=== PATIENT | female | born 1955 | race Caucasian/White ===

== ENCOUNTER 2019-02-15 14:56 | Emergency (ER) | payer BC ==
[2019-02-15 15:27] LABS: ABS Eosinophils 0.2 10^3/ul (0-0.6); ABS Lymphocytes 0.7 10^3/ul (1.0-4.8); ABS Monocytes 0.5 10^3/ul (0-0.8); Eosinophil % 2.1 %; Hematocrit 36 % (35-47); Hemoglobin 12.5 g/dL (12.0-16.0); Lymphocyte % 9.8 %; Mean Corpuscular HGB Conc 35 g/dL (31-36); Mean Corpuscular Hemoglobin 36 pg (27-31); Mean Corpuscular Volume 105 fL (80-97); Mean Platelet Volume 7.5 fL (7.4-10.4); Platelet Count 151 10^3/uL (150-450); Red Blood Count 3.44 10^6 /uL (3.70-4.87); Red Cell Distribution Width 16 % (10-15); White Blood Count 7.4 10^3/uL (3.5-10.8)
[2019-02-15 15:36] LABS: INR 0.92 (0.82-1.09)
[2019-02-15 16:40] LABS: Albumin 4.1 g/dL (3.2-5.2); Calcium 9.4 mg/dL (8.6-10.3); Potassium 4.2 mmol/L (3.5-5.0)
[2019-02-15 16:46] LABS: Albumin/Globulin Ratio 1.3 (1-3); BUN/Creatinine Ratio 15.2 (8-20); EGFR African American 89.5 (>60); Globulin 3.1 g/dL (2-4); Total Protein 7.2 g/dL (6.4-8.9)
--- NOTE | 2019-02-15 20:51 | ED ---
HPI Chest Pain - HPI Summary HPI Summary: This pt is a 63 Y/O F presenting to [facility] accompanied by her with a CC of chest pain, currently rated a 4/10 in severity and described as heaviness, that has been reoccurring and is aggravated with movement. She states that she becomes SOB when she exerts herself, which has been constant for the last couple weeks. She states that she has to sit down when she gets out of the shower due to her SOB. She states that the pain is described as heaviness. She states that the episodes occur for no longer than a couple minutes. She denies any lightheadedness, N/V, diaphoresis, and dizziness. She states that she has had a decreased appetite and has been having sleep disturbances. She states that movement and exertion aggravate her factors and that resting alleviates them. She has a PMHx of HTN and states a large family history of cardiac issues which include heart attacks in her father, mother, and her brother. - History of Current Complaint Chief Complaint: EDChestPainROMI Time Seen by Provider: 02/15/19 15:21 Hx Obtained From: Patient Onset/Duration: Started Weeks Ago, Still Present Timing: Intermittent, Lasting Minutes Initial Severity: Moderate - states that during her episodes the pain is a 4/10 in seveirty. Current Severity: None Pain Intensity: 0 Pain Scale Used: 0-10 Numeric Chest Pain Location: Left Anterior Chest Pain Radiates: No Character: Heaviness Aggravating Factor(s): Exertion Alleviating Factor(s): Rest Associated Signs and Symptoms: Positive: Chest Pain, Shortness of Breath. Negative: Dizziness, Lightheadedness, Diaphoresis, Nausea, Vomiting - Allergy/Home Medications Allergies/Adverse Reactions: Allergies Allergy/AdvReac Type Severity Reaction Status Date / Time MS Penicillins [PCN] Allergy Rash Verified 02/15/19 20:38 PMH/Surg Hx/FS Hx/Imm Hx Previously Healthy: Yes Endocrine/Hematology History: Denies: Hx Diabetes Cardiovascular History: Reports: Hx Hypertension Respiratory History: Denies: Hx Asthma Musculoskeletal History: Denies: Hx Rheumatoid Arthritis, Hx Osteoporosis - Cancer History Hx Chemotherapy: No Hx Radiation Therapy: No Infectious Disease History: No Infectious Disease History: Denies: Traveled Outside the [place] in Last 30 Days - Family History Known Family History: Positive: Cardiac Disease - States heart attacks in her mother, brother, and father - Social History Occupation: Retired Lives: With Family Alcohol Use: Daily Hx Substance Use: No Substance Use Type: Reports: None Hx Tobacco Use: No Smoking Status (MU): Never Smoked Tobacco Review of Systems Negative: Skin Diaphoresis Positive: Chest Pain - left anterior Positive: Shortness Of Breath Negative: Vomiting, Nausea Neurological: Negative - lightheadedness and dizzyness All Other Systems Reviewed And Are Negative: Yes Physical Exam - Summary Physical Exam Summary: Appearance: Well-appearing, Well-nourished, lying in bed comfortably Skin: Warm, dry, no obvious rash Eyes: sclera anicteric, no conjunctival pallor ENT: mucous membranes moist, pharynx appears normal Neck: Supple, nontender Respiratory: Clear to auscultation, no signs of respiratory distress Cardiovascular: Normal S1, S2. No murmurs. Normal distal pulses in tibial and radial bilaterally. Abdomen: Soft, nontender, normal active bowel sounds present Musculoskeletal: Normal, Strength/ROM Intact Neurological: A&Ox3, awake and alert, mentation is normal, speech is fluent and appropriate Psychiatric: affect is normal, does not appear anxious or depressed Triage Information Reviewed: Yes Vital Signs On Initial Exam: Initial Vitals Temp Pulse Resp BP Pulse Ox 98.4 F 93 14 146/96 100 02/15/19 15:04 02/15/19 15:04 02/15/19 15:04 02/15/19 15:04 02/15/19 15:04 Vital Signs Reviewed: Yes Procedures - Sedation Patient Received Moderate/Deep Sedation with Procedure: No Diagnostics - Vital Signs Vital Signs Temp Pulse Resp BP Pulse Ox 02/15/19 19:15 98.9 F 87 20 150/92 95 02/15/19 16:59 99.3 F 91 16 147/97 100 02/15/19 15:04 98.4 F 93 14 146/96 100 - Laboratory Lab Results: Lab Results 02/15/19 02/15/19 02/15/19 Range/Units 15:16 15:16 15:16 WBC 7.4 (3.5-10.8) 10^3/uL RBC 3.44 L (3.70-4.87) 10^6 /uL Hgb 12.5 (12.0-16.0) g/dL Hct 36 (35-47) % MCV 105 H (80-97) fL MCH 36 H (27-31) pg MCHC 35 (31-36) g/dL RDW 16 H (10-15) % Plt Count 151 (150-450) 10^3/uL MPV 7.5 (7.4-10.4) fL Neut % (Auto) 81.3 % Lymph % (Auto) 9.8 % Davis % (Auto) 6.3 % Eos % (Auto) 2.1 % Baso % (Auto) 0.5 % Absolute Neuts (auto) 6.0 (1.5-7.7) 10^3/ul Absolute Lymphs (auto) 0.7 L (1.0-4.8) 10^3/ul Absolute Monos (auto) 0.5 (0-0.8) 10^3/ul Absolute Eos (auto) 0.2 (0-0.6) 10^3/ul Absolute Basos (auto) 0.0 (0-0.2) 10^3/ul Absolute Nucleated RBC 0.0 10^3/ul Nucleated RBC % 0.0 INR (Anticoag Therapy) 0.92 (0.82-1.09) Sodium 136 (135-145) mmol/L Potassium 4.2 (3.5-5.0) mmol/L Chloride 103 (101-111) mmol/L Carbon Dioxide 23 (22-32) mmol/L Anion Gap 10 (2-11) mmol/L BUN 12 (6-24) mg/dL Creatinine 0.79 (0.51-0.95) mg/dL Est GFR ( Amer) 89.5 (>60) Est GFR (Non-Af Amer) 74.0 (>60) BUN/Creatinine Ratio 15.2 (8-20) Glucose 112 H (70-100) mg/dL Calcium 9.4 (8.6-10.3) mg/dL Total Bilirubin 1.00 (0.2-1.0) mg/dL AST 177 H (13-39) U/L ALT 68 H (7-52) U/L Alkaline Phosphatase 113 H (34-104) U/L Troponin I 0.00 (<0.04) ng/mL Total Protein 7.2 (6.4-8.9) g/dL Albumin 4.1 (3.2-5.2) g/dL Globulin 3.1 (2-4) g/dL Albumin/Globulin Ratio 1.3 (1-3) 02/15/19 Range/Units 18:02 WBC (3.5-10.8) 10^3/uL RBC (3.70-4.87) 10^6 /uL Hgb (12.0-16.0) g/dL Hct (35-47) % MCV (80-97) fL MCH (27-31) pg MCHC (31-36) g/dL RDW (10-15) % Plt Count (150-450) 10^3/uL MPV (7.4-10.4) fL Neut % (Auto) % Lymph % (Auto) % Davis % (Auto) % Eos % (Auto) % Baso % (Auto) % Absolute Neuts (auto) (1.5-7.7) 10^3/ul Absolute Lymphs (auto) (1.0-4.8) 10^3/ul Absolute Monos (auto) (0-0.8) 10^3/ul Absolute Eos (auto) (0-0.6) 10^3/ul Absolute Basos (auto) (0-0.2) 10^3/ul Absolute Nucleated RBC 10^3/ul Nucleated RBC % INR (Anticoag Therapy) (0.82-1.09) Sodium (135-145) mmol/L Potassium (3.5-5.0) mmol/L Chloride (101-111) mmol/L Carbon Dioxide (22-32) mmol/L Anion Gap (2-11) mmol/L BUN (6-24) mg/dL Creatinine (0.51-0.95) mg/dL Est GFR ( Amer) (>60) Est GFR (Non-Af Amer) (>60) BUN/Creatinine Ratio (8-20) Glucose (70-100) mg/dL Calcium (8.6-10.3) mg/dL Total Bilirubin (0.2-1.0) mg/dL AST (13-39) U/L ALT (7-52) U/L Alkaline Phosphatase (34-104) U/L Troponin I 0.00 (<0.04) ng/mL Total Protein (6.4-8.9) g/dL Albumin (3.2-5.2) g/dL Globulin (2-4) g/dL Albumin/Globulin Ratio (1-3) Result Diagrams: 02/15/19 15:16 02/15/19 15:16 Lab Statement: Any lab studies that have been ordered have been reviewed, and results considered in the medical decision making process. - EKG 1456 Cardiac Rate: NL - 96 BPM EKG Rhythm: Sinus Rhythm ST Segment: Normal Ectopy: None Summary of EKG Findings: NSR at 96 BPM, P waves, QRS complex, and T waves are within normal limits, T waves and intervals are normal, no ischemic changes. This is a normal EKG. Interpreted by Dr. Addison at 1500 02/15/19. Chest Pain Course/Dx - Course Course Of Treatment: This pt is a 63 Y/O F presenting to [facility] accompanied by her with a CC of chest pain that has been reoccurring and is aggravated with movement. She states that she becomes SOB when she exerts herself, which has been constant for the last couple weeks. She states that she has to sit down when she gets out of the shower due to her SOB. She states that the pain is described as heaviness. She states that the episodes occur for no longer than a couple minutes. She denies any lightheadedness, N/V, diaphoresis, and dizziness. She states that she has an extensive family history of heart attacks in her mother, brother, and father. Her PE found no acute abnormalities. She has abnormalities in the following labratory values: RBC, MCV, MCH, RDW, absolute lymphs, Glucose, AST, ALT, and Alkaline Phosphatase. Her EKG taken at 1456 found a NSR at 96 BPM, P waves, QRS complex, and T waves are within normal limits, T waves and intervals are normal, no ischemic changes. This is a normal EKG. At 2058 her PCP, Dr. Silverio, was consulted who agreed that she should arrange for outpatient cardiology work. she will be discharged home with a Dx of chest pain and instructions to folow up with her PCP in 1-3 days who will then refer her to a campus president. - Diagnoses Provider Diagnoses: Chest pain - Provider Notifications Discussed Care Of Patient With: Brittaney Silverio Time Discussed With Above Provider: 20:59 Instructed by Provider To: Have Pt Call For Appt. - Dr. Silverio, PCP, recomended that the pt should call her for futher treatment, including helping to set her up with a campus president. Discharge ED - Sign-Out/Discharge Documenting (check all that apply): Patient Departure - discharge - Discharge Plan Condition: Stable Disposition: HOME Patient Education Materials: Chest Pain (ED) Referrals: Brittaney Silverio MD [Primary Care Provider] - 2 Days Additional Instructions: Your symptoms are suggestive of angina, or pain coming from the heart, but your EKG and blood work are negative. If your symptoms become more pronounced over the weekend (worsening discomfort, nausea, sweating, symptoms easier to evoke) we should see you back here right away. Dr. Silverio should check in with you on Monday and she will arrange referral for a stress test with a campus president. In the meantime I would recommend starting on a baby aspirin (81 mg) daily, and increasing that to a full strength aspirin (325 mg) after a couple of days if you don't have any trouble with bleeding. - Billing Disposition and Condition Condition: STABLE Disposition: Home - Attestation Statements Document Initiated by Fish: Yes Documenting Scribe: Maico Brink Provider For Whom Fish is Documenting (Include Credential): Max Shaffer MD Scribe Attestation: I, Maico Brink, scribed for Max Shaffer MD on 02/16/19 at 1924. Scribe Documentation Reviewed: Yes Provider Attestation: The documentation as recorded by the Maico stack accurately reflects the service I personally performed and the decisions made by me, Max Shaffer MD Status of Scribe Document: Viewed
[2019-02-15 21:11] VITALS: BP 153/93
== END 2019-02-15 21:35 | disposition home or self-care (01) ==
LOC: ED 14:56
DX: R07.9 Chest pain, unspecified (principal); I10 Essential (primary) hypertension; Z88.0 Allergy status to penicillin; Z79.899 Other long term (current) drug therapy
CPT/HCPCS: 36415; 80053; 84484; 85025; 85610; 93005; 99283

== ENCOUNTER 2020-06-07 13:53 | Inpatient (IN) ==
[2020-06-07 15:01] LABS: ABS Basophils 0.1 10^3/ul (0-0.2); ABS Lymphocytes 0.8 10^3/ul (1.0-4.8); ABS Monocytes 0.8 10^3/ul (0-0.8); Eosinophil % 0.3 %; Hematocrit 39 % (35-47); Hemoglobin 13.5 g/dL (12.0-16.0); Lymphocyte % 7.8 %; Mean Corpuscular HGB Conc 35 g/dL (31-36); Mean Corpuscular Hemoglobin 34 pg (27-31); Mean Corpuscular Volume 97 fL (80-97); Mean Platelet Volume 8.1 fL (7.4-10.4); Platelet Count 106 10^3/uL (150-450); Red Blood Count 3.98 10^6 /uL (3.70-4.87); Red Cell Distribution Width 15 % (10-15); White Blood Count 10.8 10^3/uL (3.5-10.8)
[2020-06-07 15:17] LABS: ALT 68 U/L (7-52); AST 268 U/L (13-39); Albumin 2.6 g/dL (3.2-5.2); Albumin/Globulin Ratio 0.6 (1-3); Alkaline Phosphatase 258 U/L (34-104); Anion Gap 12 mmol/L (2-11); BUN/Creatinine Ratio 11.1 (8-20); Blood Urea Nitrogen 18 mg/dL (6-24); C Reactive Protein 68.54 mg/L (<8.01); CO2 Carbon Dioxide 21 mmol/L (22-32); Calcium 8.3 mg/dL (8.6-10.3); Chloride 95 mmol/L (101-111); Creatine Kinase 52 U/L (10-223); EGFR African American 38.8 (>60); EGFR Non-African American 32.1 (>60); Globulin 4.1 g/dL (2-4); Glucose 93 mg/dL (70-100); Lipase 58 U/L (11.0-82.0); Potassium 4.1 mmol/L (3.5-5.0); Sodium 128 mmol/L (135-145); Total Protein 6.7 g/dL (6.4-8.9)
[2020-06-07] MEDS ORDERED: NS 0.9% 1000 ml BAG 1,000 ML IV ONE (15:36)
[2020-06-07 15:53] LABS: Acetaminophen < 15 mcg/mL
[2020-06-07 16:02] LABS: INR 1.57 (0.82-1.09)
[2020-06-07 16:09] LABS: Alcohol, S 41 mg/dL (<10)
[2020-06-07] MEDS ORDERED: Pantoprazole VIAL 40 MG VIAL IV ONE (16:16)
[2020-06-07] MEDS ORDERED: cefTRIAXone 1 gm/50 mL NS BAG 1 GM/50 ML BAG IV ONE (16:16)
[2020-06-07 16:50] LABS: Total Bilirubin 8.1 mg/dL (0.2-1.0)
[2020-06-07 17:36] LABS: Hepatitis B Surface Antigen Nonreactive (Nonreactive)
[2020-06-07 17:41] LABS: Hepatitis A Ab IgM Negative (Negative)
[2020-06-07 17:42] LABS: Hepatitis B Core IgM Nonreactive (Nonreactive)
[2020-06-07] MEDS ORDERED: Magnesium Hydroxide LIQ 30 ML UDC PO PRN (17:52)
[2020-06-07 17:53] LABS: Hepatitis C Antibody Negative (Negative)
[2020-06-07] MEDS ORDERED: Thiamine 100 MG/ML 2 ml VIAL (200 mg) IM ONE (17:58)
[2020-06-07] MEDS ORDERED: NS 0.9% 1000 ml BAG 1,000 ML IV SCH (18:00)
[2020-06-07 18:35] LABS: Magnesium 1.6 mg/dL (1.9-2.7)
[2020-06-08 03:56] LABS: Urine Appearance Cloudy; Urine Bilirubin 2+ (Negative); Urine Blood 2+ (Negative); Urine Color Amber; Urine Glucose Negative (Negative); Urine Ketones Negative (Negative); Urine Nitrite Negative (Negative); Urine Protein 1+(30 mg/dL) (Negative); Urine Specific Gravity 1.023 (1.010-1.030); Urine Urobilinogen Positive (Negative)
[2020-06-08 04:04] LABS: Urine Bacteria 1+ (Absent); Urine Red Blood Cell 3+(>10/hpf) (Absent); Urine Squamous Epithelial Cell Present (Absent); Urine White Blood Cell 3+(>20/hpf) (Absent)
[2020-06-08 06:37] LABS: Hematocrit 32 % (35-47); Hemoglobin 11.2 g/dL (12.0-16.0); Mean Corpuscular HGB Conc 35 g/dL (31-36); Mean Corpuscular Hemoglobin 34 pg (27-31); Mean Corpuscular Volume 99 fL (80-97); Red Blood Count 3.26 10^6 /uL (3.70-4.87); Red Cell Distribution Width 15 % (10-15)
[2020-06-08 06:49] LABS: Albumin 2.1 g/dL (3.2-5.2); Albumin/Globulin Ratio 0.6 (1-3); BUN/Creatinine Ratio 13.3 (8-20); Calcium 7.4 mg/dL (8.6-10.3); EGFR African American 42.4 (>60); EGFR Non-African American 35.1 (>60); Globulin 3.4 g/dL (2-4); Total Bilirubin 6.5 mg/dL (0.2-1.0); Total Protein 5.5 g/dL (6.4-8.9)
[2020-06-08 06:51] LABS: ABS Eosinophils 0.1 10^3/ul (0-0.6); ABS Lymphocytes 0.9 10^3/ul (1.0-4.8); ABS Monocytes 0.8 10^3/ul (0-0.8); ABS Neutrophils 5.2 10^3/ul (1.5-7.7); Eosinophil % 0.9 %; Lymphocyte % 13.1 %; Mean Platelet Volume 8.6 fL (7.4-10.4); Platelet Count 75 10^3/uL (150-450)
[2020-06-08 06:52] LABS: Potassium 4.2 mmol/L (3.5-5.0)
[2020-06-08] MEDS: methylPREDNISolone SOD 40 mg/ml 1 ml VIAL IV SCH (09:53)
[2020-06-08] MEDS ORDERED: Lactulose 30 ml UDC PO SCH ×2 (11:00→14:00)
[2020-06-08] MEDS: Lactulose 30 ml UDC PO SCH ×2 (18:14→21:23)
[2020-06-08] MEDS: NS 0.9% 1000 ml BAG 1,000 ML IV SCH (19:16)
[2020-06-08] MEDS ORDERED: NS 0.9% 500 ml BAG 500 ML IV ONE (19:24)
[2020-06-09] MEDS: NS 0.9% 1000 ml BAG 1,000 ML IV SCH ×3 (04:09→20:35)
[2020-06-09 05:39] LABS: Albumin 1.8 g/dL (3.2-5.2); Calcium 7.4 mg/dL (8.6-10.3); Magnesium 1.6 mg/dL (1.9-2.7); Total Bilirubin 5.9 mg/dL (0.2-1.0)
[2020-06-09 05:45] LABS: Albumin/Globulin Ratio 0.5 (1-3); BUN/Creatinine Ratio 19.8 (8-20); EGFR Non-African American 55.4 (>60); Globulin 3.7 g/dL (2-4); Total Protein 5.5 g/dL (6.4-8.9)
[2020-06-09 05:51] LABS: Potassium 4.1 mmol/L (3.5-5.0)
[2020-06-09 06:07] LABS: ABS Lymphocytes 0.5 10^3/ul (1.0-4.8); ABS Monocytes 0.4 10^3/ul (0-0.8); ABS Neutrophils 6.4 10^3/ul (1.5-7.7); Hematocrit 34 % (35-47); Hemoglobin 11.4 g/dL (12.0-16.0); Lymphocyte % 6.7 %; Mean Corpuscular HGB Conc 34 g/dL (31-36); Mean Corpuscular Hemoglobin 34 pg (27-31); Mean Corpuscular Volume 101 fL (80-97); Mean Platelet Volume 8.5 fL (7.4-10.4); Nucleated Red Blood Cells % 0.1; Platelet Count 70 10^3/uL (150-450); Red Blood Count 3.32 10^6 /uL (3.70-4.87); Red Cell Distribution Width 15 % (10-15); White Blood Count 7.3 10^3/uL (3.5-10.8)
[2020-06-09 07:47] LABS: Urine Sodium Concentration < 18 mmol/L
[2020-06-09] MEDS: methylPREDNISolone SOD 40 mg/ml 1 ml VIAL IV SCH (09:58)
[2020-06-09] MEDS: Lactulose 30 ml UDC PO SCH ×3 (10:06→20:36)
[2020-06-09] MEDS ORDERED: Magnesium Sulfate IV 3 GM in NS 0.9% 100 ml BAG 100 ML IVPB ONE (23:14)
[2020-06-10 06:04] LABS: Hematocrit 32 % (35-47); Mean Corpuscular HGB Conc 35 g/dL (31-36); Mean Corpuscular Hemoglobin 34 pg (27-31); Mean Corpuscular Volume 97 fL (80-97); Mean Platelet Volume 8.6 fL (7.4-10.4); Platelet Count 93 10^3/uL (150-450); Red Blood Count 3.25 10^6 /uL (3.70-4.87); Red Cell Distribution Width 15 % (10-15); White Blood Count 11.6 10^3/uL (3.5-10.8)
[2020-06-10] MEDS: NS 0.9% 1000 ml BAG 1,000 ML IV SCH (06:06)
[2020-06-10 06:22] LABS: Albumin/Globulin Ratio 0.6 (1-3); BUN/Creatinine Ratio 28.8 (8-20); Calcium 7.6 mg/dL (8.6-10.3); EGFR African American 97.4 (>60); EGFR Non-African American 80.5 (>60); Globulin 3.4 g/dL (2-4); Potassium 3.6 mmol/L (3.5-5.0); Total Bilirubin 5.1 mg/dL (0.2-1.0); Total Protein 5.4 g/dL (6.4-8.9)
[2020-06-10] MEDS: Lactulose 30 ml UDC PO SCH ×2 (09:30→21:39)
[2020-06-10] MEDS ORDERED: NS 0.9% 1000 ml BAG 1,000 ML IV SCH (18:15)
[2020-06-10] MEDS: cefTRIAXone 1 gm/50 mL NS BAG 1 GM/50 ML BAG IVPB SCH (19:17)
[2020-06-11 06:43] LABS: ABS Basophils 0.1 10^3/ul (0-0.2); ABS Eosinophils 0.1 10^3/ul (0-0.6); ABS Monocytes 0.8 10^3/ul (0-0.8); ABS Neutrophils 7.9 10^3/ul (1.5-7.7); Eosinophil % 0.8 %; Hematocrit 35 % (35-47); Hemoglobin 12.4 g/dL (12.0-16.0); Lymphocyte % 10.4 %; Mean Corpuscular HGB Conc 35 g/dL (31-36); Mean Corpuscular Hemoglobin 34 pg (27-31); Mean Corpuscular Volume 99 fL (80-97); Mean Platelet Volume 7.9 fL (7.4-10.4); Platelet Count 84 10^3/uL (150-450); Red Blood Count 3.59 10^6 /uL (3.70-4.87); Red Cell Distribution Width 15 % (10-15); White Blood Count 9.9 10^3/uL (3.5-10.8)
[2020-06-11 06:59] LABS: Albumin 2.2 g/dL (3.2-5.2); Albumin/Globulin Ratio 0.6 (1-3); BUN/Creatinine Ratio 29.4 (8-20); Calcium 8.1 mg/dL (8.6-10.3); EGFR African American 105.7 (>60); EGFR Non-African American 87.4 (>60); Globulin 3.5 g/dL (2-4); Potassium 3.3 mmol/L (3.5-5.0); Total Bilirubin 5.5 mg/dL (0.2-1.0); Total Protein 5.7 g/dL (6.4-8.9)
[2020-06-11] MEDS ORDERED: Potassium Chlor 20 meq TAB.ER PO ONE (08:44)
[2020-06-11] MEDS: Lactulose 30 ml UDC PO SCH ×2 (08:57→20:44)
[2020-06-11] MEDS: Lactated Ringers 1000 ml BAG 1,000 ML IV SCH (12:25)
[2020-06-11] MEDS: cefTRIAXone 1 gm/50 mL NS BAG 1 GM/50 ML BAG IVPB SCH (18:01)
[2020-06-12] MEDS: Lactated Ringers 1000 ml BAG 1,000 ML IV SCH (01:50)
[2020-06-12 05:51] LABS: ABS Basophils 0.1 10^3/ul (0-0.2); ABS Eosinophils 0.1 10^3/ul (0-0.6); ABS Lymphocytes 1.1 10^3/ul (1.0-4.8); ABS Monocytes 0.8 10^3/ul (0-0.8); ABS Neutrophils 7.9 10^3/ul (1.5-7.7); Eosinophil % 1.5 %; Hematocrit 35 % (35-47); Hemoglobin 12.4 g/dL (12.0-16.0); Lymphocyte % 11.4 %; Mean Corpuscular HGB Conc 35 g/dL (31-36); Mean Corpuscular Hemoglobin 34 pg (27-31); Mean Corpuscular Volume 97 fL (80-97); Mean Platelet Volume 7.7 fL (7.4-10.4); Nucleated Red Blood Cells % 0.1; Platelet Count 73 10^3/uL (150-450); Red Blood Count 3.64 10^6 /uL (3.70-4.87); Red Cell Distribution Width 16 % (10-15)
[2020-06-12 05:57] LABS: Calcium 8.4 mg/dL (8.6-10.3); EGFR African American 122.2 (>60); Potassium 3.6 mmol/L (3.5-5.0)
[2020-06-12 08:12] LABS: Albumin 2.3 g/dL (3.2-5.2); Albumin/Globulin Ratio 0.7 (1-3); Globulin 3.4 g/dL (2-4); Indirect Bilirubin 3.4 mg/dL (0.3-1.0); Total Bilirubin 6.4 mg/dL (0.2-1.0); Total Protein 5.7 g/dL (6.4-8.9)
[2020-06-12] MEDS: Lactulose 30 ml UDC PO SCH ×2 (09:44→22:30)
[2020-06-12] MEDS: cefTRIAXone 1 gm/50 mL NS BAG 1 GM/50 ML BAG IVPB SCH (14:24)
[2020-06-12 18:51] LABS: Body Fluid Source Peritonial Fluid
[2020-06-12 19:38] LABS: Albumin 2.1 g/dL (3.2-5.2); Total Protein 5.1 g/dL (6.4-8.9)
[2020-06-12 21:21] LABS: Body Fluid Band 2 %; Body Fluid Mono 10 %; Body Fluid Other Cells 44
[2020-06-13 07:00] LABS: Albumin 2.1 g/dL (3.2-5.2); Albumin/Globulin Ratio 0.6 (1-3); BUN/Creatinine Ratio 31.4 (8-20); Calcium 8.4 mg/dL (8.6-10.3); EGFR African American 147.4 (>60); EGFR Non-African American 121.8 (>60); Globulin 3.4 g/dL (2-4); Potassium 3.6 mmol/L (3.5-5.0); Total Bilirubin 6.8 mg/dL (0.2-1.0); Total Protein 5.5 g/dL (6.4-8.9)
[2020-06-13 07:35] LABS: ABS Basophils 0.1 10^3/ul (0-0.2); ABS Eosinophils 0.2 10^3/ul (0-0.6); ABS Lymphocytes 1.2 10^3/ul (1.0-4.8); ABS Monocytes 1.1 10^3/ul (0-0.8); ABS Neutrophils 10.8 10^3/ul (1.5-7.7); Eosinophil % 1.6 %; Hematocrit 38 % (35-47); Hemoglobin 12.7 g/dL (12.0-16.0); Lymphocyte % 9.3 %; Mean Corpuscular HGB Conc 34 g/dL (31-36); Mean Corpuscular Hemoglobin 33 pg (27-31); Mean Corpuscular Volume 99 fL (80-97); Mean Platelet Volume 8.6 fL (7.4-10.4); Nucleated Red Blood Cells % 0.1; Platelet Count 69 10^3/uL (150-450); Red Blood Count 3.79 10^6 /uL (3.70-4.87); Red Cell Distribution Width 16 % (10-15); White Blood Count 13.4 10^3/uL (3.5-10.8)
[2020-06-13 08:59] LABS: Total Bilirubin 6.8 mg/dL (0.2-1.0)
[2020-06-13] MEDS: Lactulose 30 ml UDC PO SCH ×2 (09:02→19:41)
[2020-06-13 11:13] LABS: C Reactive Protein 33.96 mg/L (<8.01)
[2020-06-13] MEDS: cefTRIAXone 1 gm/50 mL NS BAG 1 GM/50 ML BAG IVPB SCH (12:24)
[2020-06-14] MEDS ORDERED: Potassium Chlor 20 meq TAB.ER PO ONE ×2 (08:21→17:04)
[2020-06-14 08:27] LABS: INR 1.75 (0.82-1.09)
[2020-06-14 08:30] LABS: Hematocrit 38 % (35-47); Hemoglobin 12.6 g/dL (12.0-16.0); Mean Corpuscular HGB Conc 34 g/dL (31-36); Mean Corpuscular Hemoglobin 34 pg (27-31); Mean Corpuscular Volume 100 fL (80-97); Mean Platelet Volume 8.3 fL (7.4-10.4); Platelet Count 78 10^3/uL (150-450); Red Blood Count 3.75 10^6 /uL (3.70-4.87); Red Cell Distribution Width 17 % (10-15); White Blood Count 14.1 10^3/uL (3.5-10.8)
[2020-06-14 08:37] LABS: Albumin 2.3 g/dL (3.2-5.2); Albumin/Globulin Ratio 0.6 (1-3); Calcium 8.3 mg/dL (8.6-10.3); Globulin 3.6 g/dL (2-4); Potassium 3.2 mmol/L (3.5-5.0); Total Bilirubin 5.7 mg/dL (0.2-1.0); Total Protein 5.9 g/dL (6.4-8.9)
[2020-06-14] MEDS: cefTRIAXone 1 gm/50 mL NS BAG 1 GM/50 ML BAG IVPB SCH (11:21)
[2020-06-14] MEDS: Lactulose 30 ml UDC PO SCH ×2 (11:38→21:43)
[2020-06-15 05:44] LABS: INR 1.68 (0.82-1.09)
[2020-06-15 05:51] LABS: ABS Lymphocytes 0.9 10^3/ul (1.0-4.8); ABS Monocytes 0.9 10^3/ul (0-0.8); ABS Neutrophils 10.6 10^3/ul (1.5-7.7); Eosinophil % 0.1 %; Hematocrit 32 % (35-47); Lymphocyte % 7.3 %; Mean Corpuscular HGB Conc 35 g/dL (31-36); Mean Corpuscular Hemoglobin 34 pg (27-31); Mean Corpuscular Volume 99 fL (80-97); Mean Platelet Volume 8.8 fL (7.4-10.4); Nucleated Red Blood Cells % 0.1; Platelet Count 74 10^3/uL (150-450); Red Blood Count 3.22 10^6 /uL (3.70-4.87); Red Cell Distribution Width 17 % (10-15); White Blood Count 12.5 10^3/uL (3.5-10.8)
[2020-06-15 05:57] LABS: Albumin/Globulin Ratio 0.6 (1-3); BUN/Creatinine Ratio 36.8 (8-20); Calcium 8.1 mg/dL (8.6-10.3); EGFR African American 129.6 (>60); EGFR Non-African American 107.1 (>60); Globulin 3.2 g/dL (2-4); Potassium 4.6 mmol/L (3.5-5.0); Total Bilirubin 4.9 mg/dL (0.2-1.0); Total Protein 5.2 g/dL (6.4-8.9)
[2020-06-15] MEDS ORDERED: D5W 500 ml BAG 500 ML IV SCH (09:00)
[2020-06-15] MEDS: Lactulose 30 ml UDC PO SCH ×2 (09:12→21:07)
[2020-06-15] MEDS: cefTRIAXone 1 gm/50 mL NS BAG 1 GM/50 ML BAG IVPB SCH (13:25)
[2020-06-15 14:46] LABS: Lactate Dehydrogenase, BF 29 U/L
[2020-06-16 06:21] LABS: Hematocrit 34 % (35-47); Hemoglobin 11.7 g/dL (12.0-16.0); Mean Corpuscular HGB Conc 35 g/dL (31-36); Mean Corpuscular Hemoglobin 35 pg (27-31); Mean Corpuscular Volume 101 fL (80-97); Mean Platelet Volume 9.4 fL (7.4-10.4); Platelet Count 73 10^3/uL (150-450); Red Blood Count 3.36 10^6 /uL (3.70-4.87); Red Cell Distribution Width 18 % (10-15); White Blood Count 14.5 10^3/uL (3.5-10.8)
[2020-06-16 06:38] LABS: Albumin 2.1 g/dL (3.2-5.2); INR 1.73 (0.82-1.09); Potassium 3.8 mmol/L (3.5-5.0); Total Bilirubin 4.5 mg/dL (0.2-1.0)
[2020-06-16 06:43] LABS: ABS Lymphocytes 0.8 10^3/ul (1.0-4.8); ABS Monocytes 1.3 10^3/ul (0-0.8); ABS Neutrophils 12.4 10^3/ul (1.5-7.7); Lymphocyte % 5.4 %; Nucleated Red Blood Cells % 0.1
[2020-06-16 06:44] LABS: Albumin/Globulin Ratio 0.7 (1-3); BUN/Creatinine Ratio 42.3 (8-20); EGFR African American 144.1 (>60); EGFR Non-African American 119.1 (>60); Globulin 3.1 g/dL (2-4); Total Protein 5.2 g/dL (6.4-8.9)
[2020-06-16] MEDS: Lactulose 30 ml UDC PO SCH ×2 (08:48→21:04)
[2020-06-16 10:25] LABS: Fluid Type, Glucose PERITONEAL; Glucose, BF 116 mg/dL
[2020-06-16 10:27] LABS: Albumin, BF 0.3 g/dL; Fluid Type, Albumin PERITONEAL
[2020-06-16 10:28] LABS: Fluid Type, Protein, Total PERITONEAL
[2020-06-16] MEDS: Lactated Ringers 1000 ml BAG 1,000 ML IV SCH (14:14)
[2020-06-17] MEDS: Lactated Ringers 1000 ml BAG 1,000 ML IV SCH (04:10)
[2020-06-17] MEDS: Lactulose 30 ml UDC PO SCH ×2 (08:13→20:26)
[2020-06-18 06:39] LABS: Albumin 2.3 g/dL (3.2-5.2); Albumin/Globulin Ratio 0.7 (1-3); BUN/Creatinine Ratio 38.2 (8-20); Calcium 8.4 mg/dL (8.6-10.3); EGFR African American 135.1 (>60); EGFR Non-African American 111.6 (>60); Globulin 3.4 g/dL (2-4); Potassium 3.8 mmol/L (3.5-5.0); Total Bilirubin 5.1 mg/dL (0.2-1.0); Total Protein 5.7 g/dL (6.4-8.9)
[2020-06-18] MEDS: Lactulose 30 ml UDC PO SCH ×3 (11:07→20:49)
[2020-06-19 06:35] LABS: ABS Basophils 0.1 10^3/ul (0-0.2); ABS Eosinophils 0.1 10^3/ul (0-0.6); ABS Monocytes 1.3 10^3/ul (0-0.8); Eosinophil % 0.3 %; Hematocrit 34 % (35-47); Hemoglobin 11.5 g/dL (12.0-16.0); Lymphocyte % 4.5 %; Mean Corpuscular HGB Conc 34 g/dL (31-36); Mean Corpuscular Hemoglobin 34 pg (27-31); Mean Corpuscular Volume 99 fL (80-97); Mean Platelet Volume 9.9 fL (7.4-10.4); Platelet Count 82 10^3/uL (150-450); Red Blood Count 3.39 10^6 /uL (3.70-4.87); Red Cell Distribution Width 18 % (10-15); White Blood Count 23.5 10^3/uL (3.5-10.8)
[2020-06-19 06:47] LABS: Albumin/Globulin Ratio 0.7 (1-3); BUN/Creatinine Ratio 33.9 (8-20); Calcium 7.7 mg/dL (8.6-10.3); EGFR African American 117.6 (>60); EGFR Non-African American 97.2 (>60); Globulin 2.8 g/dL (2-4); Potassium 3.8 mmol/L (3.5-5.0); Total Bilirubin 5.5 mg/dL (0.2-1.0); Total Protein 4.8 g/dL (6.4-8.9)
[2020-06-19] MEDS ORDERED: Piperacillin/Tazobac ADVAN 3.375 GM in NS 0.9% 100 ml BAG 100 ML IV ONE (10:44)
[2020-06-19] MEDS ORDERED: Zosyn per Pharmacy NOTE FOLLOW UP SCH (11:00)
[2020-06-19] MEDS: Lactulose 30 ml UDC PO SCH ×2 (12:14→19:50)
[2020-06-19] MEDS: CEFEPIME 2 GM in Dextrose 50 mL IV SCH (14:41)
[2020-06-19] MEDS ORDERED: Vancomycin per Pharmacy 1 EA NOTE FOLLOW UP PRN (18:55)
[2020-06-19] MEDS ORDERED: Vancomycin 1,000 MG in NS 0.9% 250 ml 250 ML IVPB ONE (19:30)
[2020-06-19] MEDS: Pentoxifylline CR 400 mg TAB 400 MG PO SCH (22:40)
[2020-06-20] MEDS: CEFEPIME 2 GM in Dextrose 50 mL IV SCH ×2 (00:23→13:13)
[2020-06-20] MEDS: Pentoxifylline CR 400 mg TAB 400 MG PO SCH ×3 (08:29→20:18)
[2020-06-20] MEDS: Lactulose 30 ml UDC PO SCH ×3 (08:31→20:18)
[2020-06-20] MEDS: Vancomycin 750 MG in NS 0.9% 250 ML IVPB SCH ×2 (08:58→20:18)
[2020-06-20 10:13] LABS: Hematocrit 34 % (35-47); Hemoglobin 11.5 g/dL (12.0-16.0); Mean Corpuscular HGB Conc 34 g/dL (31-36); Mean Corpuscular Hemoglobin 34 pg (27-31); Mean Corpuscular Volume 100 fL (80-97); Mean Platelet Volume 9.5 fL (7.4-10.4); Platelet Count 93 10^3/uL (150-450); Red Blood Count 3.39 10^6 /uL (3.70-4.87); Red Cell Distribution Width 18 % (10-15)
[2020-06-20 10:54] LABS: Albumin 2.2 g/dL (3.2-5.2); Albumin/Globulin Ratio 0.7 (1-3); BUN/Creatinine Ratio 36.8 (8-20); Calcium 7.9 mg/dL (8.6-10.3); EGFR African American 129.6 (>60); EGFR Non-African American 107.1 (>60); Globulin 3.2 g/dL (2-4); Magnesium 1.5 mg/dL (1.9-2.7); Phosphorus 2.3 mg/dL (2.5-5.0); Potassium 3.9 mmol/L (3.5-5.0); Total Bilirubin 6.7 mg/dL (0.2-1.0); Total Protein 5.4 g/dL (6.4-8.9)
[2020-06-20] MEDS ORDERED: NS 0.9% 500 ml BAG 500 ML IV SCH (17:00)
[2020-06-20] MEDS: Ondansetron 4 mg VIAL 2 MG/ML 2 ml VIAL IV PRN (20:36)
[2020-06-21] MEDS: CEFEPIME 2 GM in Dextrose 50 mL IV SCH ×2 (00:20→12:35)
[2020-06-21] MEDS: Ondansetron 4 mg VIAL 2 MG/ML 2 ml VIAL IV PRN (00:52)
[2020-06-21] MEDS ORDERED: Haloperidol 5 mg/ml SDV IV/IM 5 MG/ML AMP IV SLOW PU ONE (01:45)
[2020-06-21 09:03] LABS: ABS Eosinophils 0.2 10^3/ul (0-0.6); ABS Lymphocytes 0.5 10^3/ul (1.0-4.8); ABS Monocytes 1.3 10^3/ul (0-0.8); ABS Neutrophils 20.2 10^3/ul (1.5-7.7); Eosinophil % 0.8 %; Hematocrit 33 % (35-47); Hemoglobin 11.4 g/dL (12.0-16.0); Lymphocyte % 2.4 %; Mean Corpuscular HGB Conc 34 g/dL (31-36); Mean Corpuscular Hemoglobin 34 pg (27-31); Mean Corpuscular Volume 100 fL (80-97); Mean Platelet Volume 9.6 fL (7.4-10.4); Platelet Count 96 10^3/uL (150-450); Red Blood Count 3.32 10^6 /uL (3.70-4.87); Red Cell Distribution Width 18 % (10-15); White Blood Count 22.3 10^3/uL (3.5-10.8)
[2020-06-21 09:19] LABS: Albumin 2.1 g/dL (3.2-5.2); Albumin/Globulin Ratio 0.7 (1-3); BUN/Creatinine Ratio 32.7 (8-20); Calcium 7.9 mg/dL (8.6-10.3); EGFR African American 64.8 (>60); EGFR Non-African American 53.5 (>60); Indirect Bilirubin 3.5 mg/dL (0.3-1.0); Potassium 4.1 mmol/L (3.5-5.0); Total Bilirubin 7.4 mg/dL (0.2-1.0); Total Protein 5.1 g/dL (6.4-8.9)
[2020-06-21] MEDS: Pentoxifylline CR 400 mg TAB 400 MG PO SCH ×3 (09:36→20:46)
[2020-06-21] MEDS: Lactulose 30 ml UDC PO SCH ×2 (09:36→20:55)
[2020-06-21] MEDS: Vancomycin 750 MG in NS 0.9% 250 ML IVPB SCH ×2 (09:55→20:46)
[2020-06-21] MEDS ORDERED: NS 0.9% 500 ml BAG 500 ML IV ONE (12:07)
[2020-06-22] MEDS: CEFEPIME 2 GM in Dextrose 50 mL IV SCH ×2 (00:12→14:50)
[2020-06-22 05:37] LABS: Hematocrit 31 % (35-47); Hemoglobin 10.5 g/dL (12.0-16.0); Mean Corpuscular HGB Conc 34 g/dL (31-36); Mean Corpuscular Hemoglobin 34 pg (27-31); Mean Corpuscular Volume 99 fL (80-97); Platelet Count 118 10^3/uL (150-450); Red Blood Count 3.09 10^6 /uL (3.70-4.87); Red Cell Distribution Width 18 % (10-15); White Blood Count 19.7 10^3/uL (3.5-10.8)
[2020-06-22 05:58] LABS: Albumin 2.1 g/dL (3.2-5.2); Albumin/Globulin Ratio 0.7 (1-3); BUN/Creatinine Ratio 31.7 (8-20); Calcium 7.7 mg/dL (8.6-10.3); EGFR African American 54.9 (>60); EGFR Non-African American 45.4 (>60); Globulin 2.9 g/dL (2-4); Magnesium 1.5 mg/dL (1.9-2.7); Phosphorus 2.7 mg/dL (2.5-5.0); Potassium 3.7 mmol/L (3.5-5.0); Total Bilirubin 6.7 mg/dL (0.2-1.0)
[2020-06-22 07:40] LABS: ABS Basophils 0.2 10^3/ul (0-0.2); ABS Eosinophils 0.2 10^3/ul (0-0.6); ABS Lymphocytes 0.5 10^3/ul (1.0-4.8); ABS Monocytes 1.7 10^3/ul (0-0.8); ABS Neutrophils 17.1 10^3/ul (1.5-7.7); Eosinophil % 0.8 %; Lymphocyte % 2.7 %
[2020-06-22] MEDS ORDERED: Vancomycin Trough Check NOTE FOLLOW UP ONE (08:30)
[2020-06-22] MEDS ORDERED: Magnesium Sulf 4 GM/100 ML IV 4,000 MG/100 ML BAG IVPB ONE (09:30)
[2020-06-22] MEDS: Lactulose 30 ml UDC PO SCH ×2 (09:52→20:58)
[2020-06-22] MEDS: Pentoxifylline CR 400 mg TAB 400 MG PO SCH ×3 (09:52→20:59)
[2020-06-22] MEDS: Vancomycin 750 MG in NS 0.9% 250 ML IVPB SCH (10:30)
[2020-06-22 13:57] LABS: Body Fluid Source Peritonial Fluid
[2020-06-22 15:38] LABS: Body Fluid Mono 16 %
[2020-06-22] MEDS ORDERED: Albumin Human 25% 25 GM/100 ML BTL IV ONE (16:00)
[2020-06-23] MEDS: CEFEPIME 2 GM in Dextrose 50 mL IV SCH ×2 (01:43→13:04)
[2020-06-23 07:40] LABS: Hematocrit 33 % (35-47); Hemoglobin 11.2 g/dL (12.0-16.0); Mean Corpuscular HGB Conc 34 g/dL (31-36); Mean Corpuscular Hemoglobin 35 pg (27-31); Mean Corpuscular Volume 101 fL (80-97); Mean Platelet Volume 9.2 fL (7.4-10.4); Platelet Count 92 10^3/uL (150-450); Red Blood Count 3.21 10^6 /uL (3.70-4.87); Red Cell Distribution Width 18 % (10-15); White Blood Count 18.4 10^3/uL (3.5-10.8)
[2020-06-23 07:43] LABS: Albumin 2.7 g/dL (3.2-5.2); Albumin/Globulin Ratio 0.9 (1-3); BUN/Creatinine Ratio 28.7 (8-20); Calcium 8.3 mg/dL (8.6-10.3); EGFR African American 47.5 (>60); EGFR Non-African American 39.3 (>60); Magnesium 2.7 mg/dL (1.9-2.7); Potassium 3.4 mmol/L (3.5-5.0); Total Bilirubin 7.1 mg/dL (0.2-1.0); Total Protein 5.7 g/dL (6.4-8.9)
[2020-06-23] MEDS ORDERED: NS 0.9% 500 ml BAG 500 ML IV ONE (07:43)
[2020-06-23 07:47] LABS: INR 1.46 (0.82-1.09)
[2020-06-23 08:18] LABS: ABS Eosinophils 0.1 10^3/ul (0-0.6); ABS Lymphocytes 0.5 10^3/ul (1.0-4.8); ABS Neutrophils 16.8 10^3/ul (1.5-7.7); Eosinophil % 0.4 %; Lymphocyte % 2.6 %
[2020-06-23] MEDS: Lactulose 30 ml UDC PO SCH ×2 (09:26→21:04)
[2020-06-23] MEDS: Pentoxifylline CR 400 mg TAB 400 MG PO SCH ×3 (09:27→21:04)
[2020-06-24] MEDS: CEFEPIME 2 GM in Dextrose 50 mL IV SCH ×2 (02:00→13:51)
[2020-06-24 05:58] LABS: Albumin 2.4 g/dL (3.2-5.2); Albumin/Globulin Ratio 0.9 (1-3); BUN/Creatinine Ratio 29.9 (8-20); Calcium 7.9 mg/dL (8.6-10.3); EGFR African American 48.3 (>60); EGFR Non-African American 39.9 (>60); Globulin 2.6 g/dL (2-4); Potassium 3.2 mmol/L (3.5-5.0)
[2020-06-24] MEDS ORDERED: Potassium Chlor 20 meq TAB.ER PO ONE (07:49)
[2020-06-24] MEDS: Pentoxifylline CR 400 mg TAB 400 MG PO SCH ×3 (10:13→20:46)
[2020-06-24] MEDS: Lactulose 30 ml UDC PO SCH ×2 (10:14→20:50)
[2020-06-24 11:37] LABS: Fluid Type, Glucose PERITONEAL; Glucose, BF 135 mg/dL
[2020-06-24 11:41] LABS: Fluid Type, Protein, Total PERITONEAL
[2020-06-24 11:53] LABS: Albumin, BF <0.3 g/dL; Fluid Type, Albumin PERITONEAL
[2020-06-24 12:30] LABS: Lactate Dehydrogenase, BF 47 U/L
[2020-06-25 06:25] LABS: Hematocrit 32 % (35-47); Mean Corpuscular HGB Conc 34 g/dL (31-36); Mean Corpuscular Hemoglobin 35 pg (27-31); Mean Corpuscular Volume 101 fL (80-97); Mean Platelet Volume 8.9 fL (7.4-10.4); Platelet Count 102 10^3/uL (150-450); Red Blood Count 3.19 10^6 /uL (3.70-4.87); Red Cell Distribution Width 18 % (10-15); White Blood Count 19.8 10^3/uL (3.5-10.8)
[2020-06-25 06:44] LABS: BUN/Creatinine Ratio 23.9 (8-20); Calcium 8.2 mg/dL (8.6-10.3); EGFR African American 35.3 (>60); EGFR Non-African American 29.2 (>60); Potassium 3.6 mmol/L (3.5-5.0)
[2020-06-25] MEDS: Pentoxifylline CR 400 mg TAB 400 MG PO SCH ×3 (08:10→21:23)
[2020-06-25] MEDS: Lactulose 30 ml UDC PO SCH ×2 (08:14→21:21)
[2020-06-25 08:18] LABS: ABS Eosinophils 0.3 10^3/ul (0-0.6); ABS Lymphocytes 0.5 10^3/ul (1.0-4.8); ABS Monocytes 1.4 10^3/ul (0-0.8); ABS Neutrophils 17.6 10^3/ul (1.5-7.7); Eosinophil % 1.3 %; Lymphocyte % 2.8 %
[2020-06-26 05:53] LABS: BUN/Creatinine Ratio 22.2 (8-20); Calcium 8.1 mg/dL (8.6-10.3); EGFR African American 29.9 (>60); EGFR Non-African American 24.7 (>60); Potassium 3.3 mmol/L (3.5-5.0)
[2020-06-26] MEDS ORDERED: Potassium Chlor 20 meq TAB.ER PO ONE (07:45)
[2020-06-26] MEDS ORDERED: Pentoxifylline CR 400 mg TAB 400 MG PO SCH (09:00)
[2020-06-26] MEDS: Lactulose 30 ml UDC PO SCH ×2 (09:38→21:10)
[2020-06-26] MEDS ORDERED: Albumin Human 25% 25 GM/100 ML BTL IV ONE (10:00)
[2020-06-27 05:38] LABS: Albumin 2.4 g/dL (3.2-5.2); BUN/Creatinine Ratio 23.5 (8-20); Calcium 8.1 mg/dL (8.6-10.3); EGFR African American 28.3 (>60); EGFR Non-African American 23.4 (>60); Globulin 2.4 g/dL (2-4); Potassium 3.7 mmol/L (3.5-5.0); Total Protein 4.8 g/dL (6.4-8.9)
[2020-06-27 06:09] LABS: Hematocrit 28 % (35-47); Hemoglobin 9.5 g/dL (12.0-16.0); Mean Corpuscular HGB Conc 34 g/dL (31-36); Mean Corpuscular Hemoglobin 35 pg (27-31); Mean Corpuscular Volume 102 fL (80-97); Mean Platelet Volume 9.1 fL (7.4-10.4); Platelet Count 71 10^3/uL (150-450); Red Blood Count 2.75 10^6 /uL (3.70-4.87); Red Cell Distribution Width 18 % (10-15); White Blood Count 13.9 10^3/uL (3.5-10.8)
[2020-06-27 06:58] LABS: ABS Basophils 0.1 10^3/ul (0-0.2); ABS Eosinophils 0.4 10^3/ul (0-0.6); ABS Lymphocytes 0.6 10^3/ul (1.0-4.8); ABS Neutrophils 11.8 10^3/ul (1.5-7.7); Eosinophil % 2.8 %; Lymphocyte % 4.5 %; Nucleated Red Blood Cells % 0.1
[2020-06-27] MEDS: Lactulose 30 ml UDC PO SCH ×3 (08:27→20:22)
[2020-06-28 06:09] LABS: Calcium 8.1 mg/dL (8.6-10.3); Hematocrit 30 % (35-47); Hemoglobin 9.9 g/dL (12.0-16.0); Mean Corpuscular HGB Conc 33 g/dL (31-36); Mean Corpuscular Hemoglobin 35 pg (27-31); Mean Corpuscular Volume 106 fL (80-97); Platelet Count 67 10^3/uL (150-450); Potassium 3.6 mmol/L (3.5-5.0); Red Blood Count 2.81 10^6 /uL (3.70-4.87); Red Cell Distribution Width 18 % (10-15); White Blood Count 13.7 10^3/uL (3.5-10.8)
[2020-06-28 06:15] LABS: BUN/Creatinine Ratio 23.4 (8-20); EGFR African American 29.6 (>60); EGFR Non-African American 24.5 (>60)
[2020-06-28 13:04] LABS: Urine Appearance Cloudy; Urine Bilirubin Negative (Negative); Urine Blood 3+ (Negative); Urine Color Yellow; Urine Glucose Negative (Negative); Urine Ketones Negative (Negative); Urine Nitrite Negative (Negative); Urine Protein Negative (Negative); Urine Urobilinogen Negative (Negative)
[2020-06-28 13:05] LABS: Urine Bacteria Absent (Absent); Urine Red Blood Cell Trace(0-2/hpf) (Absent); Urine White Blood Cell Trace(0-5/hpf) (Absent)
[2020-06-28] MEDS: Lactulose 30 ml UDC PO SCH ×2 (18:17→21:11)
[2020-06-28] MEDS: Sodium Bicarb 8.4% Vial 50 ML 75 MEQ in NS 0.45% 1000 ml BAG 925 ML IV SCH (23:01)
[2020-06-29 06:34] LABS: Hematocrit 27 % (35-47); Hemoglobin 9.3 g/dL (12.0-16.0); Mean Corpuscular HGB Conc 34 g/dL (31-36); Mean Corpuscular Hemoglobin 35 pg (27-31); Mean Corpuscular Volume 103 fL (80-97); Mean Platelet Volume 9.1 fL (7.4-10.4); Platelet Count 66 10^3/uL (150-450); Red Blood Count 2.63 10^6 /uL (3.70-4.87); Red Cell Distribution Width 17 % (10-15); White Blood Count 12.8 10^3/uL (3.5-10.8)
[2020-06-29 06:48] LABS: Albumin 2.3 g/dL (3.2-5.2); Albumin/Globulin Ratio 0.9 (1-3); BUN/Creatinine Ratio 25.6 (8-20); Calcium 7.6 mg/dL (8.6-10.3); EGFR African American 34.4 (>60); EGFR Non-African American 28.4 (>60); Globulin 2.5 g/dL (2-4); Magnesium 1.6 mg/dL (1.9-2.7); Phosphorus 2.7 mg/dL (2.5-5.0); Potassium 3.3 mmol/L (3.5-5.0); Total Bilirubin 4.5 mg/dL (0.2-1.0); Total Protein 4.8 g/dL (6.4-8.9)
[2020-06-29 06:50] LABS: ABS Basophils 0.4 10^3/ul (0-0.2); ABS Eosinophils 0.2 10^3/ul (0-0.6); ABS Lymphocytes 0.7 10^3/ul (1.0-4.8); ABS Monocytes 0.9 10^3/ul (0-0.8); ABS Neutrophils 10.5 10^3/ul (1.5-7.7); Eosinophil % 1.8 %; Lymphocyte % 5.4 %
[2020-06-29] MEDS ORDERED: Potassium Chlor 20 meq TAB.ER PO ONE ×2 (09:36→12:00)
[2020-06-29] MEDS: Lactulose 30 ml UDC PO SCH ×2 (09:53→22:14)
[2020-06-29] MEDS: Sodium Bicarb 8.4% Vial 50 ML 75 MEQ in NS 0.45% 1000 ml BAG 925 ML IV SCH (09:56)
[2020-06-29] MEDS: Albumin Human 25% 25 GM/100 ML BTL IV SCH (18:02)
[2020-06-29] MEDS: Bumetanide IV 0.25 MG/ML 4 ml VIAL (1 mg) SLOW PUSH SCH (20:00)
[2020-06-30 06:03] LABS: Immature Retic Fraction 0.48; RBC Retic Count 2.45 10^6/uL (3.70-4.87); Red Blood Count 2.45 10^6 /uL (3.70-4.87)
[2020-06-30 06:18] LABS: ABS Basophils 0.1 10^3/ul (0-0.2); ABS Eosinophils 0.1 10^3/ul (0-0.6); ABS Lymphocytes 0.7 10^3/ul (1.0-4.8); ABS Monocytes 0.6 10^3/ul (0-0.8); Corrected Retic Count 1.3 % (0.5-1.5); Eosinophil % 0.9 %; Hematocrit 25 % (35-47); Hematocrit for Retic CNT 25 % (35-47); Hemoglobin 8.8 g/dL (12.0-16.0); Lymphocyte % 6.4 %; Mean Corpuscular HGB Conc 35 g/dL (31-36); Mean Corpuscular Hemoglobin 36 pg (27-31); Mean Corpuscular Volume 103 fL (80-97); Mean Platelet Volume 8.6 fL (7.4-10.4); Platelet Count 66 10^3/uL (150-450); Red Cell Distribution Width 17 % (10-15); White Blood Count 10.5 10^3/uL (3.5-10.8)
[2020-06-30 06:38] LABS: Albumin 2.7 g/dL (3.2-5.2); Albumin/Globulin Ratio 1.2 (1-3); BUN/Creatinine Ratio 25.2 (8-20); Calcium 7.9 mg/dL (8.6-10.3); EGFR African American 38.6 (>60); EGFR Non-African American 31.9 (>60); Globulin 2.2 g/dL (2-4); Magnesium 1.4 mg/dL (1.9-2.7); Potassium 3.4 mmol/L (3.5-5.0); Total Bilirubin 5.6 mg/dL (0.2-1.0); Total Protein 4.9 g/dL (6.4-8.9)
[2020-06-30] MEDS ORDERED: Potassium Chlor 20 meq TAB.ER PO ONE ×4 (08:54→20:00)
[2020-06-30] MEDS ORDERED: Magnesium Sulf 4 GM/100 ML IV 4,000 MG/100 ML BAG IVPB ONE (08:54)
[2020-06-30] MEDS: Albumin Human 25% 25 GM/100 ML BTL IV SCH ×2 (09:31→23:10)
[2020-06-30] MEDS: Lactulose 30 ml UDC PO SCH ×2 (10:03→23:23)
[2020-06-30] MEDS: Bumetanide IV 0.25 MG/ML 4 ml VIAL (1 mg) SLOW PUSH SCH ×2 (12:31→23:23)
[2020-07-01 06:22] LABS: Albumin 3.2 g/dL (3.2-5.2); Albumin/Globulin Ratio 1.5 (1-3); Calcium 8.3 mg/dL (8.6-10.3); EGFR African American 47.9 (>60); EGFR Non-African American 39.6 (>60); Globulin 2.1 g/dL (2-4); Magnesium 1.9 mg/dL (1.9-2.7); Total Bilirubin 4.4 mg/dL (0.2-1.0); Total Protein 5.3 g/dL (6.4-8.9)
[2020-07-01 06:33] LABS: INR 1.86 (0.82-1.09)
[2020-07-01 06:41] LABS: ABS Basophils 0.1 10^3/ul (0-0.2); ABS Eosinophils 0.1 10^3/ul (0-0.6); ABS Lymphocytes 0.8 10^3/ul (1.0-4.8); ABS Monocytes 0.9 10^3/ul (0-0.8); ABS Neutrophils 9.4 10^3/ul (1.5-7.7); Eosinophil % 0.7 %; Hematocrit 24 % (35-47); Lymphocyte % 6.8 %; Mean Corpuscular HGB Conc 34 g/dL (31-36); Mean Corpuscular Hemoglobin 35 pg (27-31); Mean Corpuscular Volume 103 fL (80-97); Mean Platelet Volume 8.3 fL (7.4-10.4); Platelet Count 63 10^3/uL (150-450); Red Blood Count 2.29 10^6 /uL (3.70-4.87); Red Cell Distribution Width 17 % (10-15); White Blood Count 11.2 10^3/uL (3.5-10.8)
[2020-07-01 09:33] LABS: Total Bilirubin 4.5 mg/dL (0.2-1.0)
[2020-07-01] MEDS: Albumin Human 25% 25 GM/100 ML BTL IV SCH ×2 (10:32→20:33)
[2020-07-01] MEDS: Lactulose 30 ml UDC PO SCH ×2 (10:38→22:59)
[2020-07-01] MEDS: Bumetanide IV 0.25 MG/ML 4 ml VIAL (1 mg) SLOW PUSH SCH ×2 (12:33→22:59)
[2020-07-01] MEDS ORDERED: Potassium Chlor 20 meq TAB.ER PO ONE (23:54)
[2020-07-02 04:51] LABS: ABS Basophils 0.1 10^3/ul (0-0.2); ABS Eosinophils 0.1 10^3/ul (0-0.6); ABS Lymphocytes 0.8 10^3/ul (1.0-4.8); ABS Neutrophils 7.6 10^3/ul (1.5-7.7); Eosinophil % 0.9 %; Hematocrit 21 % (35-47); Hemoglobin 7.3 g/dL (12.0-16.0); Lymphocyte % 8.7 %; Mean Corpuscular HGB Conc 35 g/dL (31-36); Mean Corpuscular Hemoglobin 36 pg (27-31); Mean Corpuscular Volume 103 fL (80-97); Mean Platelet Volume 8.5 fL (7.4-10.4); Platelet Count 65 10^3/uL (150-450); Red Blood Count 2.05 10^6 /uL (3.70-4.87); Red Cell Distribution Width 16 % (10-15); White Blood Count 9.6 10^3/uL (3.5-10.8)
[2020-07-02 04:56] LABS: INR 2.18 (0.82-1.09)
[2020-07-02 05:09] LABS: Albumin 3.1 g/dL (3.2-5.2); Albumin/Globulin Ratio 1.8 (1-3); BUN/Creatinine Ratio 19.1 (8-20); Calcium 8.1 mg/dL (8.6-10.3); EGFR African American 60.7 (>60); EGFR Non-African American 50.2 (>60); Globulin 1.7 g/dL (2-4); Magnesium 1.2 mg/dL (1.9-2.7); Potassium 3.4 mmol/L (3.5-5.0); Total Bilirubin 3.8 mg/dL (0.2-1.0); Total Protein 4.8 g/dL (6.4-8.9)
[2020-07-02] MEDS: Albumin Human 25% 25 GM/100 ML BTL IV SCH ×2 (09:50→23:37)
[2020-07-02] MEDS ORDERED: Potassium Chlor 20 meq TAB.ER PO ONE ×4 (11:15→19:00)
[2020-07-02] MEDS ORDERED: Magnesium Sulf 4 GM/100 ML IV 4,000 MG/100 ML BAG IVPB ONE ×2 (11:30→16:00)
[2020-07-02] MEDS: Lactulose 30 ml UDC PO SCH (13:47)
[2020-07-02] MEDS: Bumetanide IV 0.25 MG/ML 4 ml VIAL (1 mg) SLOW PUSH SCH (13:47)
[2020-07-02] MEDS ORDERED: CALCIUM GLUCONATE 1GM/50ML NS 1 GM/50 ML BAG IV ONE (19:13)
[2020-07-03] MEDS: Bumetanide IV 0.25 MG/ML 4 ml VIAL (1 mg) SLOW PUSH SCH ×2 (01:50→12:01)
[2020-07-03 05:55] LABS: ABS Basophils 0.1 10^3/ul (0-0.2); ABS Eosinophils 0.1 10^3/ul (0-0.6); ABS Neutrophils 9.8 10^3/ul (1.5-7.7); Eosinophil % 0.6 %; Hematocrit 29 % (35-47); INR 2.14 (0.82-1.09); Lymphocyte % 8.5 %; Mean Corpuscular HGB Conc 35 g/dL (31-36); Mean Corpuscular Hemoglobin 34 pg (27-31); Mean Corpuscular Volume 95 fL (80-97); Mean Platelet Volume 7.8 fL (7.4-10.4); Platelet Count 70 10^3/uL (150-450); Red Blood Count 2.99 10^6 /uL (3.70-4.87); Red Cell Distribution Width 19 % (10-15)
[2020-07-03 06:12] LABS: Albumin 3.7 g/dL (3.2-5.2); Albumin/Globulin Ratio 2.3 (1-3); BUN/Creatinine Ratio 16.1 (8-20); Calcium 8.6 mg/dL (8.6-10.3); EGFR African American 73.7 (>60); EGFR Non-African American 60.9 (>60); Globulin 1.6 g/dL (2-4); Magnesium 2.6 mg/dL (1.9-2.7); Potassium 4.2 mmol/L (3.5-5.0); Total Bilirubin 6.6 mg/dL (0.2-1.0); Total Protein 5.3 g/dL (6.4-8.9)
[2020-07-03] MEDS: Lactulose 30 ml UDC PO SCH ×2 (09:30→17:02)
[2020-07-03] MEDS: Albumin Human 25% 25 GM/100 ML BTL IV SCH (09:37)
[2020-07-03] MEDS ORDERED: Phytonadione IV (Adult) 10 MG in NS 0.9% 50 ML 50 ML IV ONE (15:47)
[2020-07-03] MEDS ORDERED: Bumetanide IV 0.25 MG/ML 4 ml VIAL (1 mg) SLOW PUSH ONE (15:48)
[2020-07-03] MEDS ORDERED: Potassium Chlor 20 meq TAB.ER PO ONE (15:49)
[2020-07-03] MEDS ORDERED: Phytonadione IV (Adult) 10 MG/ML 1 ML AMP ONE (16:49)
[2020-07-03 18:03] LABS: Indirect Bilirubin 4.4 mg/dL (0.3-1.0)
[2020-07-04 06:29] LABS: Albumin 3.5 g/dL (3.2-5.2); Albumin/Globulin Ratio 1.9 (1-3); BUN/Creatinine Ratio 14.6 (8-20); Calcium 8.5 mg/dL (8.6-10.3); EGFR Non-African American 58.7 (>60); Globulin 1.8 g/dL (2-4); Indirect Bilirubin 2.9 mg/dL (0.3-1.0); Potassium 3.1 mmol/L (3.5-5.0); Total Bilirubin 4.8 mg/dL (0.2-1.0); Total Protein 5.3 g/dL (6.4-8.9)
[2020-07-04 06:32] LABS: INR 2.05 (0.82-1.09)
[2020-07-04 06:59] LABS: ABS Basophils 0.1 10^3/ul (0-0.2); ABS Eosinophils 0.1 10^3/ul (0-0.6); ABS Lymphocytes 1.2 10^3/ul (1.0-4.8); ABS Neutrophils 8.2 10^3/ul (1.5-7.7); Eosinophil % 0.5 %; Hematocrit 28 % (35-47); Hemoglobin 9.7 g/dL (12.0-16.0); Lymphocyte % 11.5 %; Mean Corpuscular HGB Conc 35 g/dL (31-36); Mean Corpuscular Hemoglobin 34 pg (27-31); Mean Corpuscular Volume 98 fL (80-97); Mean Platelet Volume 8.7 fL (7.4-10.4); Platelet Count 76 10^3/uL (150-450); Red Blood Count 2.86 10^6 /uL (3.70-4.87); Red Cell Distribution Width 19 % (10-15); White Blood Count 10.6 10^3/uL (3.5-10.8)
[2020-07-04] MEDS: Lactulose 30 ml UDC PO SCH ×2 (08:47→15:26)
[2020-07-04] MEDS ORDERED: Potassium Chlor 20 meq TAB.ER PO ONE (15:12)
[2020-07-04] MEDS: Sulfamethox/Trimethoprim DS TAB 800/160 mg PO SCH (17:02)
[2020-07-05 05:26] LABS: Hematocrit 28 % (35-47); Hemoglobin 9.6 g/dL (12.0-16.0); Mean Corpuscular HGB Conc 34 g/dL (31-36); Mean Corpuscular Hemoglobin 34 pg (27-31); Mean Corpuscular Volume 98 fL (80-97); Mean Platelet Volume 8.3 fL (7.4-10.4); Platelet Count 75 10^3/uL (150-450); Red Blood Count 2.86 10^6 /uL (3.70-4.87); Red Cell Distribution Width 19 % (10-15); White Blood Count 9.9 10^3/uL (3.5-10.8)
[2020-07-05 05:30] LABS: INR 2.12 (0.82-1.09)
[2020-07-05 05:45] LABS: Albumin 3.1 g/dL (3.2-5.2); Albumin/Globulin Ratio 1.6 (1-3); BUN/Creatinine Ratio 14.4 (8-20); Calcium 7.8 mg/dL (8.6-10.3); EGFR African American 70.2 (>60); Globulin 1.9 g/dL (2-4); Potassium 3.3 mmol/L (3.5-5.0); Total Bilirubin 4.2 mg/dL (0.2-1.0)
[2020-07-05] MEDS ORDERED: PEG 3000 GI LAVAGE 1 GALLON PO ONE (07:00)
[2020-07-05] MEDS: Sulfamethox/Trimethoprim DS TAB 800/160 mg PO SCH (08:10)
[2020-07-05] MEDS ORDERED: Hemorrhoidal OINT 1 TUBE PR PRN (16:01)
[2020-07-05] MEDS: KCL 20 MEQ/100 ML IVPREMIX 20 MEQ/100 ML BAG IV SCH ×2 (16:40→21:03)
[2020-07-05] MEDS ORDERED: Phytonadione IV (Adult) 10 MG in NS 0.9% 50 ML 50 ML IV ONE (17:00)
[2020-07-05] MEDS: Zinc Oxide 40% (TOPICAL) TUBE TOPICAL PRN (21:04)
[2020-07-06] MEDS: Sulfamethox/Trimethoprim DS TAB 800/160 mg PO SCH (07:52)
[2020-07-06] MEDS: Zinc Oxide 40% (TOPICAL) TUBE TOPICAL PRN (08:00)
[2020-07-06 08:38] LABS: Hematocrit 29 % (35-47); Hemoglobin 10.1 g/dL (12.0-16.0); Mean Corpuscular HGB Conc 35 g/dL (31-36); Mean Corpuscular Hemoglobin 34 pg (27-31); Mean Corpuscular Volume 97 fL (80-97); Mean Platelet Volume 8.5 fL (7.4-10.4); Platelet Count 96 10^3/uL (150-450); Red Blood Count 2.99 10^6 /uL (3.70-4.87); Red Cell Distribution Width 19 % (10-15); White Blood Count 9.2 10^3/uL (3.5-10.8)
[2020-07-06 08:40] LABS: INR 1.99 (0.82-1.09)
[2020-07-06 08:55] LABS: Albumin 3.5 g/dL (3.2-5.2); Albumin/Globulin Ratio 1.7 (1-3); BUN/Creatinine Ratio 15.6 (8-20); Calcium 8.1 mg/dL (8.6-10.3); EGFR African American 61.3 (>60); EGFR Non-African American 50.7 (>60); Globulin 2.1 g/dL (2-4); Potassium 3.7 mmol/L (3.5-5.0); Total Bilirubin 4.5 mg/dL (0.2-1.0); Total Protein 5.6 g/dL (6.4-8.9)
[2020-07-06] MEDS ORDERED: fentaNYL 100 mcg/2 ml 50 MCG/ML VIAL ONE (12:19)
[2020-07-06] MEDS ORDERED: Midazolam 10 mg/10 ml VIAL 1 mg/ml 10 ml VIAL (10 mg) ONE (12:19)
[2020-07-06] MEDS: Lactulose 30 ml UDC PO SCH (18:39)
[2020-07-07] MEDS: Calamine LOTION BTL TOPICAL SCH ×2 (02:01→10:33)
[2020-07-07 06:02] LABS: Hematocrit 25 % (35-47); Hemoglobin 8.9 g/dL (12.0-16.0); Mean Corpuscular HGB Conc 35 g/dL (31-36); Mean Corpuscular Hemoglobin 34 pg (27-31); Mean Corpuscular Volume 97 fL (80-97); Mean Platelet Volume 8.5 fL (7.4-10.4); Platelet Count 85 10^3/uL (150-450); Red Blood Count 2.61 10^6 /uL (3.70-4.87); Red Cell Distribution Width 18 % (10-15); White Blood Count 8.3 10^3/uL (3.5-10.8)
[2020-07-07 06:10] LABS: Calcium 7.7 mg/dL (8.6-10.3); EGFR African American 62.7 (>60); EGFR Non-African American 51.8 (>60); Potassium 3.5 mmol/L (3.5-5.0)
[2020-07-07] MEDS: Zinc Oxide 40% (TOPICAL) TUBE TOPICAL PRN (07:40)
[2020-07-07] MEDS: Lactulose 30 ml UDC PO SCH ×3 (09:10→17:28)
[2020-07-07] MEDS: Sulfamethox/Trimethoprim DS TAB 800/160 mg PO SCH (09:14)
[2020-07-07] MEDS ORDERED: Calamine LOTION BTL TOPICAL PRN (12:09)
[2020-07-08 05:40] LABS: ABS Basophils 0.1 10^3/ul (0-0.2); ABS Eosinophils 0.1 10^3/ul (0-0.6); ABS Lymphocytes 1.2 10^3/ul (1.0-4.8); ABS Monocytes 0.9 10^3/ul (0-0.8); ABS Neutrophils 5.6 10^3/ul (1.5-7.7); Eosinophil % 1.8 %; Hematocrit 26 % (35-47); Lymphocyte % 14.9 %; Mean Corpuscular HGB Conc 35 g/dL (31-36); Mean Corpuscular Hemoglobin 34 pg (27-31); Mean Corpuscular Volume 97 fL (80-97); Mean Platelet Volume 8.2 fL (7.4-10.4); Platelet Count 93 10^3/uL (150-450); Red Blood Count 2.63 10^6 /uL (3.70-4.87); Red Cell Distribution Width 18 % (10-15)
[2020-07-08 05:55] LABS: Albumin 2.9 g/dL (3.2-5.2); Albumin/Globulin Ratio 1.4 (1-3); BUN/Creatinine Ratio 13.5 (8-20); C Reactive Protein 20.18 mg/L (<8.01); Calcium 7.7 mg/dL (8.6-10.3); EGFR Non-African American 58.7 (>60); Globulin 2.1 g/dL (2-4); Potassium 3.3 mmol/L (3.5-5.0); Total Bilirubin 3.2 mg/dL (0.2-1.0)
[2020-07-08] MEDS: Lactulose 30 ml UDC PO SCH (09:17)
[2020-07-08 12:44] VITALS: BP 111/66
== END 2020-07-08 14:30 | disposition home or self-care (01) | DRG 280 ==
LOC: ED 13:53 → MEDTELE 19:22 → MED 07-03 23:24
PROVIDERS: ADMIT Internal Medicine; ATTEND Internal Medicine